=== PATIENT | male | born 1975 | race Caucasian/White ===

== ENCOUNTER 2023-01-28 07:49 | Outpatient (OUT) | payer OTHER, SELFPAY ==
--- NOTE | 2023-01-28 07:51 | CT_ITS ---
The [address] [address] Patient Name: JACQUELINE DIAZ MRN: [id number] date: 1975 Sex: M Assigned Patient Location: CT Current Patient Location: CT Accession/Order Number: [id number] Exam Date: 01/28/2023 08:07 Report Date: 01/28/2023 09:40 At the request of: FARIBA SANDOVAL Procedure: CT chest wo con EXAMINATION: CT chest wo con HISTORY: Respiratory Failure J96.4 COMPARISON: No relevant comparison available. TECHNIQUE: Multi-planar CT images were created with IV contrast. Axial, Coronal, and Sagittal images. Dose reduction techniques were achieved by using automated exposure control and/or adjustment of mA and/or kV according to patient size and/or use of iterative reconstruction technique. FINDINGS: LUNGS: Scattered linear opacities most significant in the right upper lobe and along the minor fissure, atelectasis and/or scar is favored. No significant pulmonary nodule or mass. No focal parenchymal consolidation, bronchiectasis or peribronchial thickening PLEURA: No mass, effusion, or pneumothorax. VASCULATURE: No abnormality. ABRAM: No mass or adenopathy. MEDIASTINUM: No mass or adenopathy. CARDIAC: No enlargement, pericardial thickening, or significant calcification. AORTA: No aneurysm or dissection. CHEST WALL: No mass or axillary adenopathy. BONES: No bone lesion or fracture. LIMITED ABDOMEN: Diffuse hypoattenuation the liver consistent with hepatic steatosis. 2.6 cm right renal hypodensity possibly a cyst. OTHER: Negative. CT/CT chest wo con IMPRESSION: Scattered linear opacities likely representing atelectasis or scar Electronically authenticated by: YOGESH MONTOYA Date: 01/28/2023 09:40
[2023-01-28 08:31] LABS: Hemoglobin 14.6 g/dL (14.0-18.0)
--- NOTE | 2023-01-28 09:14 | RT_ITS ---
The [facility] Test Date: 2023-01-28 Pat Name: Kimo Wilkins Department: Room: - Gender: Male Treater Helper: Milagros Traore RRT : 1975 Requested By: Luis Caro Order Number: [id number] Reading MD: Luis Caro Interpretive Statements Pulmonary function testing was completed according to ATS criteria. Findings were considered accurate and reproducible. No bronchodilator was administered due to normal spirometric values. Due to software limitations, no prior studies (if performed previously) are currently available for comparison. Spirometry: -FEV1/FVC: Normal @ 83% -FEV1: Normal @ 103% -FVC: Normal @ 99% Lung volumes by plethysmography: -RV: Mildly reduced @ 74% -TLC: Normal @ 85% Diffusion capacity: -DLCO: Normal @ 106 when corrected for Hb 14.6g/dL Flow-volume loop: -Normal shape Impressions: -Normal spirometry. Total lung capacity and diffusion capacity are normal. Normal PFT. Clinical correlation required. Electronically Signed On 01-28-2023 12:16:45 EDT by Luis Caro
== END 2023-01-28 07:50 | disposition home or self-care (01) ==
LOC: CT 07:49
PROVIDERS: PCP Family Medicine; Visit Provider Internal Medicine
DX: J98.4 Other disorders of lung (principal); R06.02 Shortness of breath
CPT/HCPCS: 36415; 71250; 85018; 94010; 94726

== ENCOUNTER 2023-11-04 10:44 | Outpatient (OUT) | payer OTHER, SELFPAY ==
--- NOTE | 2023-11-04 10:46 | US_ITS ---
The [address] [address] Patient Name: JACQUELINE DIAZ MRN: [id number] date: 1975 Sex: M Assigned Patient Location: US Current Patient Location: Accession/Order Number: [id number] Exam Date: 11/04/2023 10:47 Report Date: 11/04/2023 11:50 At the request of: YOLANDA FARMER Procedure: US extremity nonvascular RT EXAM: US extremity nonvascular RT HISTORY: Enlarged Right Lymph Node, Right Axilla Lump COMPARISON: None. TECHNIQUE: A scale and color FINDINGS: Identified in the right corresponding to the patient's palpable abnormality is a normal size normal morphology lymph node measuring 1.8 x 0.8 x 0.9 cm. This is a thinned cortex measures 1.5 mm and a hyperechogenic hypervascular hilum US/US extremity nonvascular RT IMPRESSION: Normal size normal morphology lymph node Electronically authenticated by: YOGESH MONTOYA Date: 11/04/2023 11:50
== END 2023-11-04 10:45 | disposition home or self-care (01) ==
LOC: US 10:44
PROVIDERS: PCP Family Medicine; Visit Provider Nurse Practitioner
DX: R59.9 Enlarged lymph nodes, unspecified (principal); R22.31 Localized swelling, mass and lump, right upper limb
CPT/HCPCS: 76882